=== PATIENT | female | born 1980 | race Caucasian/White ===

== ENCOUNTER 2018-01-21 10:55 | Emergency (ER) | payer OTHER, SELFPAY ==
[2018-01-21 11:05] VITALS: BP 120/78; PULSE 68; RESP 18; TEMP 36.8; O2SAT 97
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
== END 2018-01-21 12:02 | disposition home or self-care (01) ==
LOC: ED 11:50
PROVIDERS: Emergency Provider Emergency Medicine; Family Provider Family Medicine; PCP Family Medicine
DX: S09.90XA Unspecified injury of head, initial encounter (principal); T76.11XA Adult physical abuse, suspected, initial encounter
CPT/HCPCS: 99282

== ENCOUNTER 2018-12-19 09:03 | Emergency (ER) | payer OTHER, SELFPAY ==
[2018-12-19 09:24] VITALS: BP 114/77; PULSE 65; RESP 18; TEMP 36.9; O2SAT 100; BMI 44.2
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
[2018-12-19] MEDS: KETOROLAC 60 MG/2 ML VIAL IM (10:45)
[2018-12-19] MEDS: ONDANSETRON 4 MG ODT SL (10:48)
[2018-12-19 11:07] VITALS: BP 117/71; PULSE 60; RESP 18; O2SAT 98
== END 2018-12-19 11:10 | disposition home or self-care (01) ==
PROVIDERS: Emergency Provider Emergency Medicine; PCP Family Medicine
DX: B02.9 Zoster without complications (principal); R51 Headache; R21 Rash and other nonspecific skin eruption
CPT/HCPCS: 96372; 99282; 99283; J1885

== ENCOUNTER → 2023-08-28 11:26 | Outpatient (CLI) | payer OTHER, SELFPAY ==
[2023-08-28 14:41] LABS: Folate 7.1 ng/mL (2.76-20.0); Vitamin B12 559 pg/mL (239-931)
[2023-08-28 15:35] LABS: Vitamin D 25 Hydroxy (D3) 22.9 ng/mL (30.0-100.0)
[2023-08-30 13:06] LABS: Parathyroid Hormone Int 52 pg/mL (15-65)
[2023-09-02 08:42] LABS: Vitamin B1 111.1 nmol/L (66.5-200.0)
== END ==
PROVIDERS: PCP Family Medicine; Referring Provider Surgery; Visit Provider Surgery
DX: E66.01 Morbid (severe) obesity due to excess calories (principal); Z68.42 Body mass index [BMI] 45.0-49.9, adult
CPT/HCPCS: 36415; 82306; 82607; 82746; 83970; 84425

== ENCOUNTER → 2023-08-29 09:30 | Outpatient (CLI) | payer OTHER, SELFPAY ==
[2023-09-02 18:46] LABS: H. Pylori Antigen Stool Negative (Negative)
== END ==
LOC: LAB 09:37
PROVIDERS: PCP Family Medicine; Referring Provider Surgery; Visit Provider Surgery
DX: E66.01 Morbid (severe) obesity due to excess calories (principal); Z68.42 Body mass index [BMI] 45.0-49.9, adult
CPT/HCPCS: 87338